=== PATIENT | male | born 1955 | race African-American/Black ===

== ENCOUNTER 2020-05-10 17:44 | Emergency (ER) | payer OTHER, MEDICAID ==
[~2020-05-10] VITALS: Ht 177.8 cm; Wt 99.8 kg
[2020-05-10 17:44] VITALS: BP_SYST 143
--- NOTE | 2020-05-10 17:44 | NUR ---
Placed in room 2. Placed on security monitor, blood pressure machine and pulse oximeter. To gown for exam. Side rails up.
--- NOTE | 2020-05-10 17:46 | NUR ---
Patient arrived in the ED c/o hypertesion. Denied any chest pain or shortness of breath. Denied any fevers, chills, nausea or vomiting. Patient is alert and oriented x4, respirations even and unlabored, speaking in full sentences, and ambulating with a steady gait. VSS, pain level 0/10. Informed of the approximate wait time. Instructed to notify ED staff for any changes in condition or worsening of symptoms while waiting to be seen by an ED provider. Patient verbalized understanding.
--- NOTE | 2020-05-10 17:57 | NUR ---
ER Dr. Lu at bedside examining patient.
--- NOTE | 2020-05-10 18:29 | NUR ---
ECG done at bedside as ordered by Dr. Lu. Patient tolerated the procedure well. ER Physician given copy of EKG for review.
--- NOTE | 2020-05-10 18:30 | NUR ---
Patient is taken to CT via gurney, in stable condition.
[2020-05-10 18:31] LABS: BASOPHILS % (AUTO) 0.5 % (0.0-2.0); EOSINOPHILS # (AUTO) 0.1 K/uL (0.0-0.4); EOSINOPHILS % (AUTO) 1.2 % (0.0-4.0); HEMATOCRIT 37.8 % (36-54); HEMOGLOBIN 11.8 g/dL (14.0-18.0); LYMPHOCYTES # (AUTO) 0.7 K/uL (1.0-5.5); LYMPHOCYTES % (AUTO) 14.3 % (20.5-51.5); MEAN CORPUSCULAR HEMOGLOBIN 24 pg (27-31); MEAN CORPUSCULAR HGB CONC 31 % (32-36); MEAN CORPUSCULAR VOLUME 76 fL (79.0-98.0); MONOCYTES # (AUTO) 0.4 K/uL (0.0-1.0); MONOCYTES % (AUTO) 9.3 % (1.7-9.3); NEUTROPHILS # (AUTO) 3.5 K/uL (1.8-7.7); NEUTROPHILS % (AUTO) 74.7 % (40.0-70.0); PLATELET COUNT (AUTO) 151 K/uL (130-430); RED BLOOD CELL COUNT(AUTO) 5.01 MIL/uL (4.2-6.2); RED CELL DISTRIBUTION WIDTH 17.8 % (9.0-15.0); WHITE BLOOD COUNT (AUTO) 4.7 K/uL (4.8-10.8)
--- NOTE | 2020-05-10 18:41 | NUR ---
Patient is back from CT in stable condition.
[2020-05-10 18:50] LABS: CALCIUM 9.2 mg/dL (8.4-11.0); CREATININE 4.81 mg/dL (0.55-1.30)
[2020-05-10 18:52] LABS: ALBUMIN 3.8 g/dL (3.4-4.8); TOTAL BILIRUBIN 0.3 mg/dL (0.0-1.0)
[2020-05-10 19:00] LABS: INR 1.1 (0.80-1.20); PROTHROMBIN TIME 11.2 SECS (9.5-12.5)
[2020-05-10] MEDS ORDERED: POTASSIUM CHLORIDE 20 MEQ TAB.PRT.SR PO ONE (19:00)
--- NOTE | 2020-05-10 19:07 | NUR ---
Administered KDur PO as ordered by Dr. Lu. Patient tolerated the medications well. See eMAR for details.
--- NOTE | 2020-05-10 19:08 | NUR ---
Report given and care transferred to EDSON Woodall.
[2020-05-10] MEDS ORDERED: cloNIDine HCL 0.1 MG TABLET PO ONE (19:30)
--- NOTE | 2020-05-10 20:02 | NUR ---
Spoke with his family/daughter- to update status of patient.
--- NOTE | 2020-05-10 20:38 | NUR ---
Patient given written and verbal discharge instructions and verbalizes understanding. ER MD discussed with patient the results and treatment provided. Patient in stable condition. ID arm band removed. No Rx given. Patient educated on pain management and to follow up with PMD. Pain Scale 0/10 Opportunity for questions provided and answered. Medication side effect fact sheet provided.
[2020-05-10 20:39] VITALS: BP_SYST 171
== END 2020-05-10 20:39 | disposition home or self-care (01) ==
LOC: SED 17:44
DX: E16.2 Hypoglycemia, unspecified (principal); N28.9 Disorder of kidney and ureter, unspecified; I10 Essential (primary) hypertension
CPT/HCPCS: 36415; 70450; 71045; 80053; 84484; 85025; 85610; 85730; 93005; 99285; J7030

== ENCOUNTER 2021-07-14 22:08 | Emergency (ER) | payer OTHER, MEDICAID ==
[~2021-07-14] VITALS: Ht 162.6 cm; Wt 98.4 kg
[2021-07-14 22:25] VITALS: BP_SYST 148
--- NOTE | 2021-07-14 23:07 | NUR ---
COVID-19 swabs collected and sent to lab.
== END 2021-07-14 23:00 | disposition left against medical advice (07) ==
LOC: SED 22:08
DX: R05.9 Cough, unspecified (principal); Z53.21 Procedure and treatment not carried out due to patient leaving prior to being seen by health care provider
CPT/HCPCS: 36415; 99283